=== PATIENT | female | born 1970 | race Two or more races ===

== ENCOUNTER 2020-03-19 12:53 | Emergency (ER) | payer OTHER ==
[~2020-03-19] VITALS: Ht 157.5 cm; Wt 62.6 kg
== END 2020-03-19 15:37 | disposition home or self-care (01) ==
LOC: ER 12:53
DX: U07.1 COVID-19 (principal); J06.9 Acute upper respiratory infection, unspecified

== ENCOUNTER 2020-11-29 09:51 | Emergency (ER) | payer OTHER ==
[~2020-11-29] VITALS: Ht 157.5 cm; Wt 65.3 kg
[2020-11-29] MEDS ORDERED: VITAMIN D210 MCG PO (10:05)
[2020-11-29] MEDS ORDERED: TESSALON PERLE100 M1 PO (14:52)
[2020-11-29] MEDS ORDERED: BUDESONIDE0.5 MG/2 M IH (14:52)
[2020-11-29] MEDS ORDERED: MUCINEX DM ER1 EAC1 PO (14:52)
[2020-11-29] MEDS ORDERED: IPRAT-ALBUT 0.5-3 ML IH (14:52)
== END 2020-11-29 15:00 ==
LOC: ER 09:51
DX: J06.9 Acute upper respiratory infection, unspecified (principal); Z03.818 Encounter for observation for suspected exposure to other biological agents ruled out

== ENCOUNTER 2020-12-08 04:12 | Emergency (ER) | payer OTHER ==
[~2020-12-08] VITALS: Ht 157.5 cm; Wt 63.5 kg
[~2020-12-08 04:12] MED LIST: BUDESONIDE0.5 MG/2 M IH; IPRAT-ALBUT 0.5-3 ML IH; MUCINEX DM ER1 EAC1 PO; TESSALON PERLE100 M1 PO; VITAMIN D210 MCG PO
[2020-12-08] MEDS ORDERED: ALBUTEROL2.5 MG/3 M IH (05:02)
[2020-12-08] MEDS ORDERED: BUDESONIDE0.5 MG/2 M IH (05:02)
[2020-12-08] MEDS ORDERED: SINGULAIR 10MG10 MG PO (05:02)
== END 2020-12-08 05:08 ==
LOC: ER 04:12
DX: J45.998 Other asthma (principal); Z03.818 Encounter for observation for suspected exposure to other biological agents ruled out